=== PATIENT | male | born 1950 | race Caucasian/White ===

== ENCOUNTER 2022-02-26 15:35 | Outpatient (REF) | payer MEDICARE, SELFPAY ==
--- NOTE | ~2022-02-26 | US_ITS ---
EXAMINATION: US SCROTUM CLINICAL INFORMATION: Left painful scrotal lump 2 cm. Rule out cyst, mass. COMPARISON: None TECHNIQUE: A sonogram of the scrotum was performed assessing elizondo-scale appearance and color Doppler flow. Spectral Doppler analysis of the arterial and venous flow were performed in the testes bilaterally. FINDINGS: RIGHT: Right testicle measures 4.5 x 1.9 x 2.6 cm, volume 11.6 mL. No focal testicular parenchymal lesions are visualized. Spectral Doppler analysis of the arterial and venous flow is normal in the right testis. Right epididymal head is normal in size. No right hydrocele or varicocele is seen. Right epididymal Doppler flow is normal. LEFT: Left testicle measures 4.5 x 1.9 x 2.4 cm, volume 10.7 mL. No focal parenchymal lesions are visualized. Spectral Doppler analysis of the arterial and venous flow is normal in the left testis. Left epididymal head is normal in size. There is a complex cyst seen in the tail of the left epididymis. This measures 1.3 x 2.1 x 1.4 cm. No left hydrocele or varicocele is seen. Left epididymal Doppler flow is normal. US/US scrotum IMPRESSION: 1.3 x 2.1 x 1.4 cm complex cyst in the tail of the left epididymis. Infectious, inflammatory and neoplastic processes should be considered. Short-term follow-up exam following antibiotic therapy and Urology consultation recommended.
== END 2022-02-26 15:36 | disposition home or self-care (01) ==
LOC: HO.US 15:35
PROVIDERS: PCP Internal Medicine; Visit Provider Internal Medicine
DX: N50.812 Left testicular pain (principal)
CPT/HCPCS: 76870

== ENCOUNTER 2022-03-01 13:12 | Outpatient (REF) | payer MEDICARE, SELFPAY ==
[2022-03-01 16:46] LABS: Estimated Average Glucose 137 mg/dL; Hemoglobin A1c % 6.4 %
== END 2022-03-01 13:13 | disposition home or self-care (01) ==
LOC: HO.HMGCLDS 13:12
PROVIDERS: PCP Internal Medicine; Visit Provider Internal Medicine
DX: E11.9 Type 2 diabetes mellitus without complications (principal)
CPT/HCPCS: 36415; 83036

== ENCOUNTER 2022-06-06 11:07 | Outpatient (AMB) | payer MEDICARE, SELFPAY ==
--- NOTE | 2022-06-06 11:38 | MHC.OFFVIS ---
Intake Intake Visit Reasons: Epididymal cyst Intake Note: Patient is present for epididymal cyst Porcelain Enameling Supervisor Required: No Accompanied by: Self / Same As Patient Allergies Penicillins [PENICILLINS] Allergy (Unknown, Verified 06/06/22 11:39) UNKNOWN HPI HPI Comments History of Present Illness Details Aramis is a pleasant male. He is seen for the following urologic conditions - right epididymal cyst Right epididymal cyst Palpable Offered surgical removal At this point he would like to follow Reassurance provided Review of Systems Const Denies chills and Denies fever(s) Card Reports no additional complaints and Denies syncope Resp Denies cough GI Denies abdominal pain and Denies heartburn Reports as per HPI and Denies change in libido Neuro Denies syncope Psych Denies change in libido Endo Denies change in libido Physical Exam Const General: cooperative, healthy appearing, comfortable and no acute distress Orientation/consciousness: patient oriented x3 HEENT Face and sinus: Yes normal facial exam Mouth: moist mucous membranes Neck Neck: Yes normal visual inspection, Yes full ROM and Yes trachea midline Chest Chest palpation & inspection: normal inspection of the chest Resp Effort & Inspection: normal respiratory effort, able to speak in complete sentences and no respiratory distress GI Inspection: Yes normal to inspection Back/Spine/Pelvis Cervical Spine: normal cervical lordosis Thoracic/Lumbar Spine: thoracic and lumbar spine normal to inspection Skin General skin exam: no rashes or lesions noted Neuro General: patient oriented x3, gait normal, tone normal and moves all extremities Extrem General: Yes normal to inspection and Yes capillary refill normal Results AMB Urinalysis, Automated UA Leukoctes 0 Jenny/uL Last Edit by JODY Guerrero on 06/06/22 11:47 UA Nitrite Negative Last Edit by JODY Guerrero on 06/06/22 11:47 UA Urobilinogen 0.2 mg/dL Last Edit by JODY Guerrero on 06/06/22 11:47 UA Protein 0 mg/dL Last Edit by JODY Guerrero on 06/06/22 11:47 UA pH 6.0 Last Edit by JODY Guerrero on 06/06/22 11:47 UA Blood 0 Anjum/uL Last Edit by JODY Guerrero on 06/06/22 11:47 UA Specific Butternut 1.030 Last Edit by JODY Guerrero on 06/06/22 11:47 UA Ketone Negative Last Edit by KRISTIN GuerreroA on 06/06/22 11:47 UA Bilirubin 0 mg/dL Last Edit by Aretha Joya RMA on 06/06/22 11:47 UA Glucose 0 mg/dL Last Edit by KRISTIN GuerreroA on 06/06/22 11:47 Results Reviewed Results Reviewed: Laboratory Last Values Urine pH (Auto) 6.0 06/06/22 11:46 Specific Butternut (Auto) 1.030 06/06/22 11:46 Urine Protein (Auto) 0 mg/dL 06/06/22 11:46 Glucose (UA)(Auto) 0 mg/dL 06/06/22 11:46 Urine Ketones (Auto) Negative 06/06/22 11:46 Urine Blood (Auto) 0 Anjum/uL 06/06/22 11:46 Urine Nitrite (Auto) Negative 06/06/22 11:46 Urine Bilirubin (Auto) 0 mg/dL 06/06/22 11:46 Urine Urobilinogen (Auto) 0.2 mg/dL 06/06/22 11:46 Leukocyte Esterase (Auto) 0 Jenny/uL 06/06/22 11:46 Assessment & Plan Assessment & Plan (1) Epididymal cyst: Code(s): N50.3 - Cyst of epididymis Plan P.r.n. follow-up Orders: Orders AMB Urinalysis Automated 06/06/22 Z13.9 - Encounter for screening, unspecified Patient Instructions: Imaging studies, laboratory and physical exam results were discussed and reviewed in detail. No major barriers to patient understanding were identified. An opportunity to ask questions regarding the treatment plan was provided. All questions were answered. The patient expressed understanding and agreement with the above treatment plan. The patient is aware they should contact our office by phone for worsening of their current condition or the appearance of new urologic symptoms. Compliance is encouraged with any medications and followup testing that is ordered. It is a privilege to participate in the urologic care of your patient. If you have any questions or concerns regarding treatment for the above conditions, or other urologic issues, please do not hesitate to contact me. The office telephone contact is [phone]. This note is constructed using voice recognition software. While every effort has been made to ensure accuracy staff educator errors may have been included. Yours sincerely, Dr Igor Lance MD, JO[facility] - Urology Providers of Expert, Compassionate Care for the Genitourinary System Coding Level of Care Code New Pt Level 3 (21322) Diagnoses Epididymal cyst N50.3
== END 2022-06-06 12:23 | disposition home or self-care (01) ==
LOC: HO.HUSH 11:07
PROVIDERS: PCP Internal Medicine; Visit Provider Urology
DX: N50.3 Cyst of epididymis (principal)
CPT/HCPCS: 99499

== ENCOUNTER 2025-07-22 09:38 | Outpatient (AMB) | payer MEDICARE, SELFPAY ==
--- OUTSIDE RECORDS SUMMARY | 2025-05-25 05:30 | XMS_ITS ---
Author Organization [facility] Address [address] [place] [address] Care Team Providers Care Professional Development Instructor Name Role Phone Federico Marin MD Primary Care Provider Nikky Wise [phone] REASON FOR VISIT for sooner apt Encounters Encounter Location Date Provider Diagnosis [facility] [address] [place] [address] 05/25/2025 Nikky Cline Plan Of Treatment No Information Progress Notes * Aramis CENTENO ADOB: [birth year] (75 yo M)Acc No.[id number]:05/25/2025 Progress Notes Patient: Aramis DE LA FUENTE Provider: Jillian Cline DPM :1950 A ge:75 Y S ex:Male Date:05/25/2025 [address] [id number] Pcp:Federico Marin MD Subjective: * Chief Complaints: * 1 . For sooner apt. * Medical History: Objective: * Vitals: Assessment: Plan: * Treatment: * Images: * The named appointment provid er may or may not be the originator of this progress note, and it is not deemed complete until electronically signed by the appointment provider. Sign off status: Pending * Provider: Jillian Cline DPM Date: 0 05/25/2025 Generated for Godfreyi dandy/Fawilnerg/eTransmitting on: 0 07/22/2025 10:43 AM EDT
[2025-07-22 09:51] VITALS: BP 136/80; PULSE 76; TEMP 36.8; O2SAT 97; BMI 26.1
--- NOTE | 2025-07-22 09:51 | MHC.OFFWIV ---
Intake Vital Signs 07/22/25 09:51 Height 5 ft 8 in Weight 172 lb BMI 26.1 BP 136/80 Blood Pressure Location Lt brachial Position Sitting Pulse 76 Pulse Source Pulse Oximeter Temp 98.3 F Temp Source Oral Pulse Oximetry (%) 97 Oxygen Delivery Method Room Air Intake Visit Reasons: ep build up in left ear Intake Note: pt presents with left ear blockage and diminished hearing Allergies Penicillins (PENICILLINS) Allergy (Unknown, Verified 07/22/25 09:52) UNKNOWN Do you need a note to return to daycare/school/sports/work: No HPI ep build up in left ear HPI Details This is a 75-year-old female patient presents to the walk-in clinic today with report of blockage in left ear. States that this has been building up for some time. He tried to use [id number]-[id number] wax-dissolving drops without any benefit. He states that this happened many years ago and he required ear irrigation. Denies any ear pain. Review of Systems Const All systems reviewed & are unremarkable except as noted in HPI and below Physical Exam Vital Signs: Last Vital Signs Temp 98.3 F 07/22/25 09:51 Pulse 76 07/22/25 09:51 BP 136/80 07/22/25 09:51 Pulse Ox 97 07/22/25 09:51 Oxygen Delivery Method Room Air 07/22/25 09:51 BMI result Body Mass Index 26.1 Const General: cooperative, healthy appearing, comfortable and no acute distress HEENT Head: Yes normal to inspection Ears: hearing grossly normal bilaterally, external ears normal, TM's normal bilaterally and Abnormal EAC present cerumen impaction on the left General nose exam: Normal external nose present Resp Effort & Inspection: normal respiratory effort Skin General skin exam: no rashes or lesions noted Psych Appearance: grossly normal Mental Status: mental status grossly normal Speech and movement: Normal speech and movement present Office Procedures Cerumen Removal From which ear canal was the cerumen removed: left Removal: irrigation Notes: patient tolerated procedure well, no complications and ear canal clear [id number] Irrigation/Lavage Assessment & Plan Assessment & Plan (1) Impacted cerumen, left ear: Code(s): H61.22 - Impacted cerumen, left ear Plan: Irrigation of left ear performed with excellent results. Large amount of impacted cerumen removed. Ear canal is now clear, TM appears normal. Patient has no other complaints. Advised Debrox drops [id number] as needed for any further wax buildup. He may return to the clinic as needed. All questions were answered and patient agrees to plan. Coding Level of Care Code Est Pt Level 4 (80565) Diagnoses Impacted cerumen, left ear H61.22 CPT Codes Office Procedure - CPT: 44025-Ugc Irrigation/Lavage ([id number])
--- OUTSIDE RECORDS SUMMARY | 2025-07-22 10:44 | XMS_ITS | Encounter Summary ---
Author Organization [facility] Address [address] [place] [address] Phone Care Team Providers Care Hand Dry Cleaner Name Role Phone Federico Marin MD Primary Care Provider [phone]- [phone] Encounter Details Date Type Department Care Team ([facility] st Contact Info) Description 01/28/2022 Procedure Pass [facility] [address] [place] [address] Social History Tobacco Use Types Packs/Day Years Used Date Smoking Tobacco: Never Smokeless Tobacco: Never Alcohol Use Standard Drinks/Week Comments Yes 7 (1 standard drink = 0.6 oz pur e alcohol) Sex and Gender Information Value Date Recorded Sex Assigned at Male 10/08/2021 3:10 PM EST Legal Sex Male 3:02 PM EST Gender Identity Male 10/08/2021 3:10 PM EST Sexual Orientation Straight 10/08/2021 3: 10 PM EST documented as of this encounter Plan of Treatment Not on file documented as of this encounter Visit Diagnoses Not on filedocumented in this encounter Care Teams Hand Dry Cleaner Relationship Specialty Start Date End Date Federico Marin MD [address] [place] [address] PCP - General Internal Medicine 10/08/21 documented as of this encounter Additional Source Comments The information contained in this document represents components of the legal health record. It is not the complete legal health record.[facility]
--- OUTSIDE RECORDS SUMMARY | 2025-07-22 10:44 | XMS_ITS | Clinical Summary ---
Author Organization [facility] Address [address] [place] [address] Phone Care Team Providers Care Software Engineer Mobile Name Role Phone Federico Marin MD Primary Care Provider [phone]- [phone] Allergies Active Allergy Reactions Criticality Noted Date Comments Penicillins Unknown 12/24/2021 Pt stated he was told he had an allergy at age 3 Medications losartan (COZAAR) 25 MG tablet Take 25 mg by mouth daily. 1 Active metFORMIN (GLUCOPHAGE) 1000 MG tablet nightly at bedtime. 1 Active metFORMIN (GLUCOPHAGE) 500 MG tablet every morning. 1 Active metoprolol tartrate (LOPRESSOR) 50 MG tablet Take 50 mg by mouth 2 (two) times a day. 1 Active aspirin 81 mg chewable tablet Take 1 tablet (81 mg total) by mouth 2 (two) times a day. 60 tablet 2 Active senna (SENOKOT) 8.6 mg tablet [The details of the medication are not available because there are pending changes by a home health clinician.] 28 tablet 2 Active Additional Information Patient not taking.Reason: Patient Declined, Informant: Self, Reported on 02/20/2022 ondansetron (ZOFRAN) 4 MG tablet Take 1 tablet (4 mg total) by mouth every 8 (eight) hours as needed for nausea. 30 tablet 2 Active Additional Information Patient not taking.Reported on 02/27/2022 acetaminophen (TYLENOL) 325 mg tablet Take 2 tablets (650 mg total) by mouth every 6 (six) hours as needed for mild pain. 90 tablet 2 Active Additional Information Patient not taking.Informant: Self, Reported on 02/27/2022 ibuprofen (ADVIL,MOTRIN) 600 MG tablet Take 1 tablet (600 mg total) by mouth every 6 (six) hours as needed for pain (specific location in comments). 60 tablet 2 Active oxyCODONE 5 MG immediate release tablet [The details of the medication are not available because there are pending changes by a home health clinician.] 40 tablet 2 Active Additional Information Patient not taking.Reason: Patient Declined, Informant: Self, Reported on 02/20/2022 clindamycin (CLEOCIN) 300 MG capsule Take 2 capsules (600 mg total) by mouth once as needed (dental prophylaxis). Take 30-60 minutes prior to your procedure 4 capsule 3 2 Active Active Problems Problem Noted Date Diagnosed Date Hypertension 01/23/2022 Diabetes 01/23/2022 Osteoarthritis 01/23/2022 Social History Tobacco Use Types Packs/Day Years Used Date Smoking Tobacco: Never Smokeless Tobacco: Never Alcohol Use Standard Drinks/Week Comments Yes 7 (1 standard drink = 0.6 oz pur e alcohol) Education Answer Date Recorded Are you interested in more education? Not on edith e 03/08/2023 Are you concerned about learning? Not on file 03/08/2023 No 03/08/2023 No 03/08/2023 Digital Access Answer Date Recorded No 04/06/2023 No 04/06/2023 No 04/06/2023 Reliable internet access at home? Not on file 04/06/2023 Device with a working camera? Not on file Sex and Gender Information Value Date Recorded Sex Assigned at Male 10/08/2021 3:10 PM EST Legal Sex Male 3:02 PM EST Gender Identity Male 10/08/2021 3:10 PM EST Sexual Orientation Straight 10/08/2021 3: 10 PM EST Last Filed Vital Signs Vital Sign Reading Time Taken Comments Blood Pressure 140/80 02/22/2022 9:04 AM EDT Pulse 88 02/22/2022 9:04 AM EDT Temperature 36.2 C (97.2 F) 02/22/2022 9:04 AM EDT Respiratory Rate 14 02/22/2022 9:04 AM EDT Oxygen Saturation 98% 02/22/2022 9:04 AM EDT Inhaled Oxygen Concentration - - Weight 81.6 kg (180 lb) 04/30/2022 9:51 AM EDT Height 172.7 cm (5' 8 ) 04/30/2022 9:51 AM EDT Body Mass Index 27.37 04/30/2022 9:51 AM EDT Plan of Treatment Health Maintenance Due Date Last Done Comments Adult Td,Tdap Booster 1950 BLOOD PRESSURE 1950 DEPRESSION SCREENING 1962 HEPATITIS C SCREENING 1968 LIPID PANEL 1968 PNEUMOCOCCAL VACCINES (50+ y ears) (1 of 2 - PCV) 1969 COLOGUARD 1995 COLONOSCOPY 1995 COLORECTAL CANCER SCREENING 1995 FIT TEST 1995 FOBT 1995 SIGMOIDOSCOPY 1995 VIRTUAL COLONOSCOPY 1995 ZOSTER VACCINES (1 of 2) 2000 DIABETIC EYE EXAM 12/24/2021 HEMOGLOBIN A1C 06/23/2022 12/24/2021 CREATININE LEVEL 12/24/2022 12/24/2021 POTASSIUM LEVEL 12/24/2022 12/24/2021 RSV VACCINE (1 - 1-dose 75+ series) 2025 INFLUENZA VACCINE (#1) 2025 08/10/2021 COVID-19 VACCINE (2 - 2024-2 6 season) 2025 09/10/2021 SMOKING STATUS SCREENING (On ce After 26 Yrs) Completed 04/30/2022 HEPATITIS A VACCINES Aged Out No long er eligible based on patient's age to complete this topic HIB VACCINES Aged Out No longer eligi ble based on patient's age to complete this topic MENINGOCOCCAL VACCINES (ACWY) Aged Out No longer eligible based on patient's age to complete this topic MENINGOCOCCAL VACCINES (B) Aged Out N o longer eligible based on patient's age to complete this topic Medical Devices Implanted Type Area Collection Clerk Device Identifier Shelf Expiration Date Model / Serial / Lot Hw In Right Shoulder Palacos R Implanted:Qty: 2 on 01/28/2022 by Sim Ybarra MD at [facility] [id number] 03/09/2025 / [id number] / [id number] Miko Nephew Dished Insert 5-6 Left 9mm Implanted:Qty: 1 on 01/28/2022 by Sim Ybarra MD at [facility] Left: Knee [id number] 09/30/2031 [id number] / [id number] Knee Implant 32mm Patella Journey Resurfacing Polyethylene Standard - [id number] Implanted:Qty: 1 on 01/28/2022 by Sim Ybarra MD at [facility] Left: Knee CROUCH 09/11/2031 [id number] / [id number] Knee Implant Sz 6 Component Femoral Journey Ii Cruciate Retaining Oxinium Nonporous Lt - [id number] Implanted:Qty: 1 on 01/28/2022 by Sim Ybarra MD at [facility] Left: Knee CROCUH [id number] 09/24/2031 [id number] / [id number] Crouch Nephew Size 6 Left Tibial Base Plate Journey Implanted:Qty: 1 on 01/28/2022 by Sim Ybarra MD at [facility] Left: Knee 04/17/2031 [id number] / [id number] Procedures Procedure Name Priority Date/Time Associated Diagnosis Comments HEMOGLOBIN A1C STAT 12/24/2021 1:40 PM EST Preop examination Diabetes mellitus type 2, noninsulin dependent COMPREHENSIVE METABOLIC PANEL Routine 12/24/2021 1:40 PM EST Preop examination from Last 3 Months or Most Recently Relevant to Health Maintenance Results * (ABNORMAL) Comprehensive metabolic panel (12/24/2021 1:40 PM EST) SODIUM 138 135 - 145 mmol/L [facility] POTASSIUM 3.9 3.4 - 5.0 mmol/L [facility] CHLORIDE 100 98 - 108 mmol/L [facility] CO2 24 23 - 32 mmol/L [facility] BUN 18 8 - 25 mg/dL [facility] CREATININE 1.11 0.60 - 1.50 mg/dL [facility] GLUCOSE 148(H) 70 - 110 mg/dL [facility] ALBUMIN 4.4 3.3 - 5.0 g/dL [facility] TOTAL PROTEIN 7.1 6.0 - 8.3 g/dL [facility] CALCIUM 9.5 8.5 - 10.5 mg/dL [facility] ALKALINE PHOSPHATASE 72 45 - 115 U/L [facility] TOTAL BILIRUBIN 0.3 0.0 - 1.0 mg/dL [facility] AST 20 10 - 40 U/L [facility] ALT 26 10 - 55 U/L [facility] GLOBULIN 2.7 1.9 - 4.1 g/dL [facility] EGFR 71 >59 mL/min/1. 73m2 [facility] Comment:Estimated glomerular filtration rate calculated using the CKD-EPI refit equation. ANION GAP 14 3 - 17 mmol/L [facility] 12/24/2021 1:40 PM EST 12/24/2021 4:27 PM EST us Marnie Trevino NP LAB BLOOD ORDERABLES Final Resu lt [address] [address] * (ABNORMAL) Hemoglobin A1c (12/24/2021 1:40 PM EST) HEMOGLOBIN A1C 6.0(H) 4.3 - 5.6 % [facility] Comment:HbA1c levels 5.7-6.4 % represent pre-diabetes, indicating impaired glucose control and an increased risk of developing diabetes compared with lower HbA1c levels. The diagnostic HbA1c level for diabetes is 6.5% or greater. CALC MEAN BLD GLUC 126 mg/dL [facility] Comment: There is no established normal range for the Calculated Mean Blood Glucose (CMBG), however a HbA1c of 5.6% (upper limit of normal) represents a CMBG of 114 mg/dL. The diagnostic hemoglobin A1c level for diabetes is greater than or equal to 6.5% which represents a CMBG greater than or equal to 140 mg/dL. 12/24/2021 1:40 PM EST 12/24/2021 4:28 PM EST us Marnie Trevino NP LAB BLOOD ORDERABLES Final Resu lt [address] [address] from Last 3 Months or Most Recently Relevant to Health Maintenance Insurance MEDICARE PART A & B [facility] MEDICARE COMPLEMENT SUPPLEMENT MEDICARE PART A & B [facility] MEDICARE COMPLEMENT SUPPLEMENT MEDICARE PART A & B [facility] MEDICARE COMPLEMENT SUPPLEMENT MEDICARE PART A & B [facility] MEDICARE COMPLEMENT SUPPLEMENT MEDICARE PART A & B [facility] MEDICARE COMPLEMENT SUPPLEMENT MEDICARE PART A & B [facility] MEDICARE COMPLEMENT SUPPLEMENT MEDICARE PART A & B [facility] MEDICARE COMPLEMENT SUPPLEMENT MEDICARE PART A & B MEDICARE COMPLEMENT SUPPLEMENT MEDICARE PART A & B [facility] MEDICARE COMPLEMENT SUPPLEMENT Advance Directives For more information, please contact: [phone] (9AM - 5PM [facility], Friday-Friday) Documents on File Type Date Recorded Patient Cut Off Worker Expl anation Healthcare Proxy 01/31/2022 3:13 PM Care Teams Software Engineer Mobile Relationship Specialty Start Date End Date Federico Marin MD [address] [place] [id number] PCP - General Internal Medicine 10/08/21 Additional Source Comments The information contained in this document represents components of the legal health record. It is not the complete legal health record.[facility]
--- OUTSIDE RECORDS SUMMARY | 2025-07-22 10:44 | XMS_ITS | Patient Health Record ---
Author Organization [facility] Address [address] [place] [address] Care Team Providers Care Business Office Representative Name Role Phone Tania (RETIRED) Federico JENKINS Primary Care Provider Unavailable Zaheer Serrano Unavailable [phone] Allergies Allergen (clinical drug ingredient) Drug/Non Drug Allergy documented on EMR Reaction Allergy Type Onset Date Status penicillin G Penicillin G Sodium Unknown Drug Allergy Active Reason For Referral No Information Medications Medication SIG (Take, Route, Frequency, Duration) Notes Start Date End Date Status Metoprolol Tartrate 50 MG 1 tablet with food Orally Twice a day for 30 day(s) Active Losartan Potassium 25 MG 1 tablet Orally Once a day for 30 day(s) Active metFORMIN HCl 500 MG 1 tablet in the am and 2 in the pm with a meal Orally daily Active Cosamin DS - as directed Orally O nce a day Active Immunizations Vaccine Route Administration Date Status Comme nts Influenza Unknown 08/18/2018 Administered Social History Tobacco Use: Social History Observation Description Date Details (start date - stop date) Never Smoker NA - NA Tobacco Use/Smoking Question Answer Notes Patient is a nonsmoker Alcohol Screen Question Answer Notes Did you have a drink contain ing alcohol in the past year? Yes How often did you have a dri nk containing alcohol in the past year? 4 or more times a week (4 points) How many drinks did you have on a typical day when you were drinking in the past year? 1 or 2 drinks (0 point) How often did you have 6 or more drinks on one occasion in the past year? Never (0 point) Points 4 Interpretation Positive Section Notes: Nonsmoker; glass of wine kami ry night Problems Problem Type SNOMED Code ICD Code Onset Dates Problem Status W/U Status Risk Notes Problem 43530209 Rectal bleeding (K62.5) Active confirmed Plan Of Treatment Future Test Test Name Order Date COLONOSCOPY 01/06/2019 Insurance Providers Payer Name Payer Address Payer Phone Subscriber Number Group Number Insured Name Patient Relationship to Insured Coverage Start Date Coverage End Date MEDICARE OF [place] [address] [place] [address] [id number] GEE CENTENO Self - patient is the insured [facility] [address] [place] [address] [phone] [id number] GEE CENTENO Self - patient is the insured Medical (General) History Medical History History ICD Code Denies MT,CVA,Lung disease,renal disease NIDDM Hypertension Prostate cancer--s/p surgery Negative screening colonosco py in 04/2010--diverticulosis and internal hemorrhoids Surgical History Surgery Date(Month/Year) Prostatectomy approx 2003 Right shoulder surgery Left knee arthroscopy Achilles tendon repair-right leg
--- OUTSIDE RECORDS SUMMARY | 2025-07-22 10:44 | XMS_ITS | Patient Health Record ---
Author Organization [facility] Mike Address [address] [place] [address] Care Team Providers Care Workers Compensation Coordinator Name Role Phone Federico Marin MD Primary Care Provider Nikky Wise Unavailable [phone] Allergies Allergen (clinical drug ingredient) Drug/Non Drug Allergy documented on EMR Reaction Allergy Type Onset Date Status amoxicillin Amoxicillin Unknown Drug Allergy Act ingrid Results Component Value Reference Range Notes HEMOGLOBIN A1C (GLYCOHEMOGLO BIN) Reviewed date:05/09/2025 02:24:13 PM Interpretation: Performing Lab: Notes/Report: HEMOGLOBIN A1C % (HH) 6.5 Reason For Referral No Information Medications Medication SIG (Take, Route, Frequency, Duration) Notes Start Date End Date Status Losartan Potassium 25 MG 1 tablet Orally Once a day; Duration: 30 day(s) Active metFORMIN HCl 1000 MG 1 tablet with a me al Orally in the PM Not-Taking Extra Depth Diabetic Shoes with 3 Pair Custom heat-molded multi-density innersoles for 1 year Dx: 09/25/2020 N ot-Taking Cosamin DS - as directed Orally Not-Taking metFORMIN HCl 500 MG 1 tablet with a guillermina l Orally In the AM Active Metoprolol Succinate 50 MG as directed Orally Twice daily Active Immunizations Vaccine Route Administration Date Status Comme nts Influenza Unknown 08/10/2021 Administered Influenza Unknown 09/10/2024 Administered COVID-19 Pfizer BioNTech Vaccine Unknown 09/10/2021 Administered 1st 01/18/21 2nd 02/08/21 Social History Tobacco Use: Social History Observation Description Date Details (start date - stop date) Never Smoker NA - NA Tobacco use other than smoking: Question Answer Notes Are you an other tobacco user? No Tobacco Control (Standard) Question Answer Notes Tobacco use: Nonsmoker Additional Findings: Tobacco non-user Current no nsmoker AUDIT-C (Standard) Question Answer Notes Did you have a drink contain ing alcohol in the past year? Yes How often did you have a dri nk containing alcohol in the past year? Declined to specify (0 point) How many drinks did you have on a typical day when you were drinking in the past year? Declined to specify (0 point) How often did you have six o r more drinks on one occasion in the past year? 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) Plantar fasciitis, bilateral (M72.2) Active confirmed Vital Signs Blood pressure diastolic 70 mm Hg 05/09/2025 Height 5ft8in in 05/09/2025 Blood pressure systolic 127 mm Hg 05/09/2025 Weight 175 lbs 05/09/2025 BMI 26.61 kg/m2 05/09/2025 Encounters Encounter Location Date Provider Diagnosis [facility] [address] [place] [address] 05/09/2025 Nikky Arringtonaker Pain in right foot M79.671 ; Plantar fasciitis, bilateral M72.2 ; Calcaneal spur, right foot M77.31 ; Other myositis of right foot M60.871 ; Bursitis of right foot M77.51 ; Pain in left foot M79.672 ; Calcaneal spur, left foot M77.32 ; Other myositis of left foot M60.872 and Bursitis of left foot M77.52 Assessments Encounter Date Diagnosis (ICD Code) Assessment Notes Treatment Notes Treatment Clinical Notes Section Notes 05/09/2025 Pain in right foot (ICD-10 - M79.671) 05/09/2025 Plantar fasciitis, bilateral (ICD-10 - M72.2) Patient Educated with: HEEL CORD STRETCHES.pdf (HEEL CORD STRETCHES.pdf) Patient Educated with: RICE [email or web address].pdf (RICE THERAPY.pdf) 05/09/2025 Calcaneal spur, right foot (ICD-10 - M77.31) 05/09/2025 Other myositis of right foot (ICD-10 - M60.871) 05/09/2025 Bursitis of right foot (ICD-10 - M77.51) 05/09/2025 Pain in left foot (ICD-10 - M79.672) 05/09/2025 Calcaneal spur, left foot (ICD-10 - M77.32) 05/09/2025 Other myositis of left foot (ICD-10 - M60.872) 05/09/2025 Bursitis of left foot (ICD-10 - M77.52) Plan Of Treatment Pending Test Test Name Order Date X ray : Foot, right 3V 09/25/2020 [id number] SKIN LESIONS, OVER 4 09/25/20 20 [id number] SKIN LESIONS, OVER 4 11/28/19 Insurance Providers Payer Name Payer Address Payer Phone Subscriber Number Group Number Insured Name Patient Relationship to Insured Coverage Start Date Coverage End Date [employer] [address] [place] [address] [id number] Aramis Hyman Self - patient is the insured [address] [place] [address] [place] [address] [id number] Aramis Hyman Self - patient is the insured Medical (General) History Medical History History ICD Code osteoarthritis Knee Pain Diabetic High blood pressure Joint implants/screws Measles Chicken pox Bone implants/screws Surgical History Surgery Date(Month/Year) shoulder surgery 1995 achilles tendon repair 2014 knee surgery 2021
== END 2025-07-22 10:35 | disposition home or self-care (01) ==
PROVIDERS: PCP Internal Medicine; Visit Provider Nurse Practitioner Family
DX: H61.22 Impacted cerumen, left ear (principal)

== ENCOUNTER → 2025-07-22 09:38 | Outpatient (BNVA) | payer MEDICARE, OTHER, SELFPAY | PROVIDERS: PCP Internal Medicine | DX: H61.22 Impacted cerumen, left ear (principal) | CPT/HCPCS: 69209; 99212 ==